=== PATIENT | male | born 1970 | race Caucasian/White ===

== ENCOUNTER → 2020-07-05 14:07 | Outpatient (CLI) | payer SELFPAY ==
--- NOTE | 2020-07-05 14:15 | CT_ITS ---
STUDY: CTA CHEST REASON FOR EXAM: Male, 49 years old. TAA RADIATION DOSAGE (If Supplied By Facility): CTDIvol = ( 16.82 ) mGy, DLP = ( 620.37 ) mGycm TECHNIQUE: The examination was performed with the intravenous administration of IV 100mL Isovue-[id number]. Post-processing of the angiographic images was performed, with multiplanar reformation and 3D reconstruction. Individualized dose optimization techniques were used for this CT. COMPARISON: None. FINDINGS: Normal enhancement of the main pulmonary artery and right and left pulmonary arteries. Normal enhancement of the bilateral peripheral pulmonary arteries. There is no demonstrated pulmonary embolism. Normal thoracic aorta and visualized great vessels. There is no demonstrated aortic dissection. Normal heart and pericardium. There are visualized mediastinal lymph nodes, which are within normal size limits, and with normal morphology. Normal hilar regions. Normal visualized trachea and bronchi. The lungs are well expanded. Scattered focal areas of the groundglass appearance in the peripheral aspect of the right upper lobe as well as in the lateral peripheral aspect of the left upper lobe. Focal areas of groundglass appearance also seen in the right middle lobe and lower lobes bilaterally. Follow-up is recommended. Normal pleura. Normal chest wall structures. There are degenerative changes of thoracic spine. Normal visualized upper abdomen. CT/CTA Chest W/WO Contrast IMPRESSION: There is no evidence of the thoracic aortic aneurysm. Focal areas of groundglass appearance scattered in both lungs as described. Follow-up is recommended. Electronically Signed: Brendan Barajas, at 14:46 EDT , Service support ,
== END ==
PROVIDERS: PCP Physician Assistant; Referring Provider Physician Assistant; Visit Provider Physician Assistant
DX: J98.59 Other diseases of mediastinum, not elsewhere classified (principal)
CPT/HCPCS: 71275; Q9967